=== PATIENT | female | born 1990 | race Caucasian/White ===

== ENCOUNTER 2018-01-18 11:27 | Outpatient (CLI) | payer OTHER ==
[2018-01-18 11:40] VITALS: BP 151/81; PULSE 107; RESP 18; TEMP 97.6
--- NOTE | 2018-02-09 20:23 | P.MSEPDOC ---
Presenting Problems - Arrival Data Date of Arrival on Unit: 01/18/18 Time of Arrival on Unit: 11:15 Mode of Transport: Ambulatory - Complaint OB-Reason for Admission/Chief Complaint: NST Medical History - Information : 1 Para: 0 Term: 0 : 0 Abortions: Spontaneous or Elective: 0 Number of Living Children: 0 - Gestational Age Gestational Age by NAMITA (wks/days): 37 Weeks and 0 Days Review of Systems - Review of Systems Constitutional: No problems Breast: No problems ENT: No problems Cardiovascular: No problems Respiratory: No problems Gastrointestinal: No problems Genitourinary: No problems Musculoskeletal: No problems Neurological: No problems Skin: No problems Vital Signs - Temperature Temperature: 97.6 F Temperature Source: Temporal Artery Scan - Pulse Right Brachial Pulse Rate: 107 Pulse Assessment Method: Automatic Cuff - Respirations Respiratory Rate: 18 Oxygen Delivery Method: Room Air - Blood Pressure Right Arm Blood Pressure: 151/81 Blood Pressure Mean: 104 Blood Pressure Source: Automatic Cuff Medical Screen Scoring (Pre) - Cervical Exam Dilation: Exam Deferred Effacement: Exam Deferred - Uterine Contractions Frequency: > 5 minutes apart = 1 Duration: > 40 seconds = 2 Intensity: N/A - Maternal Vital Signs Maternal Temperature: N/A Maternal Blood Pressure: N/A Signs of Preeclampsia: N/A Maternal Respirations: N/A - Pain Assessment Pain Scale Used: Numeric (1 - 10) Pain Intensity: 0 - Maternal Trauma Maternal Trauma: N/A - Assessment Baseline FHR: 125,135 Heart Rate - NICHD Category: Category I (Normal) = 0 NST: Reactive Position: N/A Station: N/A - Total Score Total Score (Pre): 3 - Level of Risk Level of Risk: Low (0-5) Physician Notification (Pre) - Physician Notified Physician Notified Date: 01/18/18 Physician Notified Time: 12:00 Physician/Practitioner Notifed:: Dr. Guevara Spoke With: Dr. Guevara New Order Received: Yes - Notification Comment Comment: discharge pt home Disposition - Disposition OB Disposition: Discharge to home, Written follow up instructions reviewed Discharge Date: 01/18/18 Discharge Time: 12:07 I agree with the RN Medical Screening Exam: Yes Physician's MSE Comment: I was not told her blood pressure was elevated at this visit but the NSTs were reactive. Risk & Benefit of care provided described in d/c instruction: Yes Diagnosis: TWIN , DICHORIONIC/DIAMNIOTIC, THIRD TRIMESTER
== END 2018-01-18 12:07 | disposition home or self-care (01) ==
LOC: FBPOP 11:27 → MERGE 11:27 → FBPOP 12:07
PROVIDERS: ATTEND Obstetrics & Gynecology
DX: O30.043 Twin pregnancy, dichorionic/diamniotic, third trimester (principal); Z3A.37 37 weeks gestation of pregnancy
CPT/HCPCS: 59025; 99213

== ENCOUNTER 2018-02-05 05:50 | Inpatient (IN) | payer OTHER ==
[2018-02-05] MEDS: LACTATED RINGERS 1,000 ML IV SCH ×2 (06:18→11:05)
[2018-02-05] MEDS ORDERED: METHYLERGONOVINE 0.2 MG/ML 1 ML AMP IM PRN (06:32)
[2018-02-05] MEDS ORDERED: OXYTOCIN 10 UNIT/ML 1 ML VIAL IM PRN (06:32)
[2018-02-05] MEDS ORDERED: CARBOPROST TROMETHAMINE 250 MCG/ML 1 ML AMP IM PRN (06:32)
[2018-02-05] MEDS ORDERED: LIDOCAINE 1% (PF) 10 MG/ML (30 ML SDV) SQ PRN (06:32)
[2018-02-05] MEDS ORDERED: TERBUTALINE 1 MG/ML VIAL SQ PRN (06:32)
[2018-02-05] MEDS ORDERED: OXYTOCIN 20 UNITS/1000 ML NS 1,000 ML IV SCH ×2 (06:45→14:15)
[2018-02-05 06:47] LABS: Basophils % (A) 0 %; Eosinophils % (A) 0 %; HCT 41.7 % (34.0-46.0); HGB 14.1 gm/dL (11.4-16.0); Lymphocytes # (A) 1.7 k/uL (1.0-4.8); Lymphocytes % (A) 18 %; MCH 31.4 pg (25.0-35.0); MCHC 33.7 g/dL (31.0-37.0); MCV 93.1 fL (80.0-100.0); Mean Platelet Volume 7.8; Monocytes # (A) 0.6 k/uL (0-1.0); Monocytes % (A) 7 %; Neutrophils # (A) 6.7 k/uL (1.3-7.7); Neutrophils % (A) 72 %; Platelet Count 185 k/uL (150-450); RBC 4.48 m/uL (3.80-5.40); RDW 12.9 % (11.5-15.5); WBC 9.3 k/uL (3.8-10.6)
--- NOTE | 2018-02-05 08:22 | P.HPOB ---
History of Present Illness H&P Date: 02/05/18 Chief Complaint: Induction of labor, twins 27-year-old presents at 37 weeks for induction of labor of twins. Her cervix is 3-4 cm dilated, 90% effaced, and 0 station. The twins are vertex/ vertex and the last week's ultrasound baby A weighed 5 lbs. 11 oz. baby B weight 5 lbs. 9 oz. Biophysical profiles have been 8 out of 8 weekly. heart tones for baby a since 130 - 135 with moderate variability and reactive, B 130-135 with moderate variability and reactive. Review of Systems All systems: negative Constitutional: Denies chills, Denies fever Eyes: denies blurred vision, denies pain Ears, nose, mouth and throat: Denies headache, Denies sore throat Cardiovascular: Denies chest pain, Denies shortness of breath Respiratory: Denies cough Gastrointestinal: Denies abdominal pain, Denies diarrhea, Denies nausea, Denies vomiting Genitourinary: Denies dysuria, Denies hematuria Musculoskeletal: Denies myalgias Integumentary: Denies pruritus, Denies rash Neurological: Denies numbness, Denies weakness Psychiatric: Denies anxiety, Denies depression Endocrine: Denies fatigue, Denies weight change Past Medical History Past Medical History: Thyroid Disorder Additional Past Medical History / Comment(s): Obstetric history: This patient is with twins by IVF. She's had care with me since 10 weeks gestation. Blood type is A+, otherwise negative, rubella immune, RPR nonreactive, hepatitis B negative. Normal 1 hour glucose tolerance test. GBS negative. History of Any Multi-Drug Resistant Organisms: None Reported Past Surgical History: Breast Surgery, Tonsillectomy Additional Past Surgical History / Comment(s): breast augmentation Past Anesthesia/Blood Transfusion Reactions: No Reported Reaction Past Psychological History: No Psychological Hx Reported Smoking Status: Never smoker Past Alcohol Use History: None Reported Past Drug Use History: None Reported - Past Family History Mother Family Medical History: Hypertension, Thyroid Disorder Medications and Allergies Home Medications Medication Instructions Recorded Confirmed Type Levothyroxine Sodium [Synthroid] 25 mcg PO DAILY 01/04/18 02/05/18 History Pnv No.95/Ferrous Fum/Folic AC 1 tab PO DAILY 01/04/18 02/05/18 History [ Multivitamin Tablet] RX: Aspirin 1 tab PO DAILY 01/04/18 02/05/18 History RX: Folic Acid 0.4 mg PO DAILY 01/11/18 02/05/18 History Allergies Allergy/AdvReac Type Severity Reaction Status Date / Time No Known Allergies Allergy Verified 02/05/18 06:31 Exam Osteopathic Statement: *. No significant issues noted on an osteopathic structural exam other than those noted in the History and Physical/Consult. - Vital Signs Vital signs: Vital Signs Temp Pulse Resp BP Pulse Ox 02/05/18 06:31 96.6 F L 82 16 128/80 97 Intake and Output 02/04/18 02/05/18 02/05/18 22:59 06:59 14:59 Other: Weight 84.822 kg Heart: Regular rate and rhythm Lungs: Clear to auscultation bilaterally Abdomen: Soft, nontender Extremities: Negative Homans sign Results Result Diagrams: 02/05/18 06:15 Assessment and Plan (1) Dichorionic diamniotic twin gestation Current Visit: Yes Status: Acute Code(s): O30.049 - TWIN , DICHORIONIC/DIAMNIOTIC, UNSP TRIMESTER SNOMED Code(s): 497763156 Plan: 1. Induction of labor with amniotomy and Pitocin 2. Anticipate normal vaginal delivery 3. All risks benefits alternatives have been discussed with the patient and her .
[2018-02-05 08:27] VITALS: BMI 31.1
[2018-02-05] MEDS ORDERED: fentaNYL (PF) 50 MCG/ML 5 ML AMP ONE (10:34)
[2018-02-05] MEDS ORDERED: BUPIVACAINE (PF) 0.25% 30 ML VIAL ONE (10:34)
[2018-02-05] MEDS ORDERED: SODIUM CHLORIDE 0.9% 100 ML BAG ONE (10:34)
[2018-02-05] MEDS ORDERED: HYDROcodone/APAP 5-325MG 1 EACH TAB PO PRN (14:02)
[2018-02-05] MEDS ORDERED: diphenhydrAMINE 25 MG CAP PO PRN (14:02)
[2018-02-05] MEDS ORDERED: WITCH HAZEL 1 EACH MED..PAD TOPICAL PRN (14:02)
[2018-02-05] MEDS ORDERED: ACETAMINOPHEN TAB 325 MG TAB PO PRN (14:02)
[2018-02-05] MEDS ORDERED: BENZOCAINE/MENTHOL SPRAY 1 GM/SPRAY AEROSOL TOPICAL PRN (14:02)
[2018-02-05] MEDS ORDERED: SIMETHICONE 80 MG CHEWABLE PO PRN (14:02)
[2018-02-05] MEDS ORDERED: diphenhydrAMINE 50 MG CAP PO PRN (14:02)
[2018-02-05] MEDS ORDERED: LANOLIN CREAM 5 GM TUBE TOPICAL PRN (14:02)
[2018-02-05] MEDS ORDERED: HYDROCORTISONE 2.5% RECTAL CREAM 30 GM TUBE RECTAL PRN (14:02)
[2018-02-05] MEDS ORDERED: ZOLPIDEM 5 MG TAB PO PRN (14:02)
[2018-02-05] MEDS ORDERED: diphenhydrAMINE 50 MG/ML 1 ML VIAL IVP PRN ×2 (14:02)
[2018-02-05] MEDS: IBUPROFEN 600 MG TAB PO PRN ×2 (15:06→20:42)
--- NOTE | 2018-02-05 17:06 | P.PROBDLV ---
Vaginal Delivery Note - . Vaginal Delivery Note: 27-year-old presents at 37 weeks and 2 days for induction of labor of twin gestation. Her cervix is 3 cm dilated, 80% effaced, and 0 station. heart tones for twin A 130 to 135 with moderate variability and reactive. Twin B 130-135 with moderate variability and reactive. Pitocin was started and amniotomy was performed at 7:56 AM on twin A clear fluid noted. She progressed throughout the day and did get an epidural was comfortable. Her cervix was completely dilated at 1300. She pushed, and delivered a viable male over midline episiotomy under epidural anesthesia at 1336. Head delivered OA, anterior shoulder delivered gentle downward traction followed by posterior shoulder and rest of body. Nose and mouth bulb suctioned, cord clamped and cut , infant handed off to waiting nurses. Apgars 7, 7, weight 6 lbs. 4 oz. Amniotomy was performed on twin B at 1338 clear fluid noted. Vertex position verified by palpation. heart tones remained in the 120s to 130s. With the next contraction patient pushed, and delivered a viable female infant over midline episiotomy under epidural anesthesia at 1340. Head delivered OA, anterior shoulder delivered gentle downward traction followed by posterior shoulder and rest of body. Nose and mouth bulb suctioned, cord clamped and cut , placed on mother's abdomen. Apgars 9, 9, weight 5 lbs. 2 oz. Placentas delivered spontaneously, intact with 2 three-vessel cords at 1343. Vagina, cervix, and perineum were inspected. Second-degree midline episiotomy is repaired with 2-0 and 3-0 Vicryl. Estimated blood loss 200 mL. Mother and both babies were in stable condition.
[2018-02-05] MEDS: SENNOSIDES-DOCUSATE SODIUM 1 EACH TAB PO SCH (20:42)
[2018-02-06] MEDS: IBUPROFEN 600 MG TAB PO PRN ×3 (05:40→23:26)
--- NOTE | 2018-02-06 08:51 | P.PNOBGVD ---
Subjective - Subjective Principal diagnosis: S/P NVD PPD #1 Interval history: Pt seen and examined. Denies N/V, F/C, CP, SOB, calf pain. Patient reports: Reports appetite normal, Reports voiding normally, Reports pain well controlled, Reports ambulating normally : doing well Objective - Latest Vital Signs Latest vital signs: Vital Signs Temp Pulse Resp BP 02/06/18 08:00 98.3 F 86 16 127/81 02/06/18 00:00 98 F 100 15 150/72 02/05/18 20:00 98 F 103 H 15 139/87 02/05/18 16:00 98 F 112 H 16 129/66 02/05/18 15:30 110 H 16 137/79 02/05/18 15:00 108 H 16 137/72 02/05/18 14:45 107 H 16 139/69 02/05/18 14:30 127 H 16 141/67 02/05/18 14:15 108 H 16 154/66 02/05/18 14:00 113 H 16 156/86 Intake and Output 02/05/18 02/06/18 02/06/18 22:59 06:59 14:59 Other: # Voids 1 - Exam Lungs: bilateral: normal Chest: Normal S1, Normal S2 Extremities: Present: normal Abdomen: Present: normal appearance, soft Uterus: Present: normal, firm Assessment and Plan (1) Dichorionic diamniotic twin gestation Current Visit: Yes Status: Resolved Code(s): O30.049 - TWIN , DICHORIONIC/DIAMNIOTIC, UNSP TRIMESTER SNOMED Code(s): 070213511 (2) Normal vaginal delivery Current Visit: Yes Status: Acute Code(s): O80 - ENCOUNTER FOR FULL-TERM UNCOMPLICATED DELIVERY SNOMED Code(s): 95514986 Plan: 1. cont pp care
[2018-02-06] MEDS: SENNOSIDES-DOCUSATE SODIUM 1 EACH TAB PO SCH ×2 (14:27→23:28)
[2018-02-07 08:01] VITALS: BP 131/73; PULSE 88; RESP 16; TEMP 98
[2018-02-07] MEDS: SENNOSIDES-DOCUSATE SODIUM 1 EACH TAB PO SCH (08:26)
--- NOTE | 2018-02-07 11:35 | P.DS ---
Providers Date of admission: 02/05/18 05:50 Expected date of discharge: 02/07/18 Attending physician: Clementina Guevara Primary care physician: Stated None - Discharge Diagnosis(es) (1) Dichorionic diamniotic twin gestation Current Visit: Yes Status: Resolved (2) Normal vaginal delivery Current Visit: Yes Status: Acute Hospital Course: Patient presented for induction of labor of 37 week twins. She underwent a normal vaginal delivery without complication. Her course was uneventful. She will be discharged home day #2 in stable condition to follow-up with me in 6 weeks. Plan - Discharge Summary New Discharge Prescriptions: New Ibuprofen [Motrin] 600 mg PO Q6HR PRN #30 tab PRN Reason: Mild Pain Or Fever >= 100.5 No Action Levothyroxine Sodium [Synthroid] 25 mcg PO DAILY Pnv No.95/Ferrous Fum/Folic AC [ Multivitamin Tablet] 1 tab PO DAILY Aspirin 1 tab PO DAILY Folic Acid 0.4 mg PO DAILY Discharge Medication List Aspirin 1 tab PO DAILY 01/04/18 [History] Levothyroxine Sodium [Synthroid] 25 mcg PO DAILY 01/04/18 [History] Pnv No.95/Ferrous Fum/Folic AC [ Multivitamin Tablet] 1 tab PO DAILY [History] Folic Acid 0.4 mg PO DAILY 01/11/18 [History] Ibuprofen [Motrin] 600 mg PO Q6HR PRN #30 tab 02/06/18 [Rx] Follow up Appointment(s)/Referral(s): Clementina Guevara DO [Doctor of Osteopathic Medicine] - 6 Weeks Discharge Disposition: HOME SELF-CARE
== END 2018-02-07 13:15 | disposition home or self-care (01) | DRG 775 ==
LOC: 4FBP 05:50
PROVIDERS: ADMIT Obstetrics & Gynecology; ATTEND Obstetrics & Gynecology
PROC: 10907ZC Drainage of Amniotic Fluid, Therapeutic from Products of Conception, Via Natural or Artificial Opening (ICD-10-PCS; principal; 2018-02-05)
PROC: 3E033VJ Introduction of Other Hormone into Peripheral Vein, Percutaneous Approach (ICD-10-PCS; principal; 2018-02-05)
PROC: 10E0XZZ Delivery of Products of Conception, External Approach (ICD-10-PCS; principal; 2018-02-05)
PROC: 0W8NXZZ Division of Female Perineum, External Approach (ICD-10-PCS; principal; 2018-02-05)
PROC: 00HU33Z Insertion of Infusion Device into Spinal Canal, Percutaneous Approach (ICD-10-PCS; principal; 2018-02-05)
PROC: 3E0R3NZ Introduction of Analgesics, Hypnotics, Sedatives into Spinal Canal, Percutaneous Approach (ICD-10-PCS; principal; 2018-02-05)
DX: O30.043 Twin pregnancy, dichorionic/diamniotic, third trimester (principal); Z37.2 Twins, both liveborn; Z3A.37 37 weeks gestation of pregnancy; Z79.82 Long term (current) use of aspirin; Z82.49 Family history of ischemic heart disease and other diseases of the circulatory system; O99.284 Endocrine, nutritional and metabolic diseases complicating childbirth; E07.9 Disorder of thyroid, unspecified; Z79.890 Hormone replacement therapy
CPT/HCPCS: 85025; 88307